=== PATIENT | female | born 1970 | race Caucasian/White ===

== ENCOUNTER 2019-06-30 18:21 | Observation (INO) ==
[2019-06-30] MEDS ORDERED: Isovue-370 500 ML BOTTLE IVP ONE (18:35)
[2019-06-30 19:53] LABS: BUN/Creatinine Ratio 20 (6-26); Blood Urea Nitrogen 8 mg/dL (6-20); Calcium 9.2 mg/dL (8.6-10.3); Carbon Dioxide 27 mEq/L (23-29); Chloride 107 mEq/L (98-107); Glucose 114 mg/dL (70-105); Osmolality,Calculated 287 (280-300); Potassium 4.1 mEq/L (3.5-5.1); Sodium 139 mEq/L (136-145); Troponin I < 0.03 ng/mL (< 0.04); eGFR For African Americans > 60 (> 60); eGFR For Non-African Americans > 60 (> 60)
[2019-06-30 19:53] LABS: Basophils % 0.4 %; Immature Granulocytes % 0.2 % (0-4); Monocytes % 13.8 %; Red Cell Distribution Width 14.9 % (11.5-14.5)
[2019-06-30 20:04] LABS: Thyroid Stimulating Hormone < 0.010 mcIU/mL (0.340-5.600)
[2019-06-30 20:10] LABS: Eosinophils # 0.2 K/mcL (0.0-0.6); Eosinophils % 3.4 %; Hematocrit 32.3 % (35.3-44.9); Hemoglobin 10.3 g/dL (11.5-15.4); Lymphocytes # 1.5 K/mcL (0.6-4.6); Lymphocytes % 28.5 %; Mean Corpuscular HGB Conc 31.9 g/dL (31.6-35.5); Mean Corpuscular Hemoglobin 28.5 pg (28.0-33.3); Mean Corpuscular Volume 89.5 fL (83.0-100.0); Mean Platelet Volume 10.4 fL (9.4-12.4); Monocytes # 0.7 K/mcL (0.0-1.3); Neutrophils # 2.9 K/mcL (1.6-8.9); Platelet Count 160 K/mcL (140-400); Red Blood Count 3.61 M/mcL (3.82-4.97); Segmented Neutrophils % 53.7 %; White Blood Count 5.4 K/mcL (4.3-11.1)
[2019-06-30] MEDS ORDERED: Naloxone 0.4 MG/ML INJ IVP PRN (21:11)
[2019-06-30] MEDS ORDERED: Ondansetron 4 MG/2 ML VIAL IVP PRN (21:11)
[2019-06-30] MEDS ORDERED: *HR* LORazepam 1 MG TABLET PO PRN (21:12)
[2019-06-30] MEDS ORDERED: Furosemide 20 MG/2 ML VIAL IVP ONE (21:28)
[2019-06-30] MEDS: Levalbuterol Neb 0.63 MG/3 ML IH SCH (22:04)
[2019-06-30 22:10] LABS: Magnesium 1.9 mg/dL (1.6-2.6)
[2019-06-30 22:13] LABS: % Iron Saturation 8 % (15-50); Iron 30 mcg/dL (50-170); Transferrin 273 mg/dL (203-362)
[2019-06-30 22:25] LABS: Triiodothyronine (T3) Free 21.49 pg/mL (2.50-3.90)
[2019-06-30 22:28] LABS: Thyroid Stimulating Hormone < 0.010 mcIU/mL (0.340-5.600)
[2019-06-30] MEDS: methIMAzole 5 MG TABLET PO SCH (23:24)
[2019-06-30] MEDS: MethylPREDNISolone 40 MG/ML VIAL IVP SCH (23:24)
[2019-07-01 01:47] LABS: Hematocrit 32.3 % (35.3-44.9); Hemoglobin 10.3 g/dL (11.5-15.4); Mean Corpuscular HGB Conc 31.9 g/dL (31.6-35.5); Mean Platelet Volume 10.8 fL (9.4-12.4); Platelet Count 157 K/mcL (140-400); Red Blood Count 3.55 M/mcL (3.82-4.97); Red Cell Distribution Width 15.1 % (11.5-14.5); White Blood Count 5.4 K/mcL (4.3-11.1)
[2019-07-01 02:06] LABS: Alanine Aminotransferase 13 Units/L (7-52); Albumin 3.6 g/dL (3.5-5.7); Albumin/Globulin Ratio 1.2 (1.1-2.2); Alkaline Phosphatase 223 Units/L (34-104); Aspartate Amino Transferase 21 Units/L (13-39); BUN/Creatinine Ratio 18 (6-26); Bilirubin,Total 0.7 mg/dL (0.3-1.0); Blood Urea Nitrogen 9 mg/dL (6-20); Calcium 9.4 mg/dL (8.6-10.3); Carbon Dioxide 26 mEq/L (23-29); Chloride 104 mEq/L (98-107); Glucose 165 mg/dL (70-105); Magnesium 1.7 mg/dL (1.6-2.6); Osmolality,Calculated 286 (280-300); Potassium 3.9 mEq/L (3.5-5.1); Sodium 137 mEq/L (136-145); Total Protein 6.6 g/dL (6.4-8.9); eGFR For African Americans > 60 (> 60); eGFR For Non-African Americans > 60 (> 60)
[2019-07-01] MEDS: Levalbuterol Neb 0.63 MG/3 ML IH SCH ×3 (04:00→15:35)
[2019-07-01] MEDS: methIMAzole 5 MG TABLET PO SCH ×3 (04:22→17:40)
[2019-07-01] MEDS: MethylPREDNISolone 40 MG/ML VIAL IVP SCH (09:52)
[2019-07-01] MEDS ORDERED: Furosemide 20 MG/2 ML VIAL IVP SCH (10:15)
[2019-07-01 15:08] VITALS: BP 114/72
== END 2019-07-01 19:10 | disposition left against medical advice (07) ==
LOC: 2ANU 18:21 → EMEROOARM 18:21 → 3BNU 22:05
PROVIDERS: ADMIT Internal Medicine; ATTEND Internal Medicine

== ENCOUNTER 2019-09-11 18:52 | Inpatient (IN) ==
[2019-09-11] MEDS: Ipratropium/Albuterol Neb 3 ML IH SCH (19:27)
[2019-09-11 19:43] LABS: Basophils % 0.2 %; Eosinophils # 0.1 K/mcL (0.0-0.6); Eosinophils % 3.4 %; Hematocrit 31.4 % (35.3-44.9); Hemoglobin 9.5 g/dL (11.5-15.4); Immature Granulocytes % 0.2 % (0-4); Lymphocytes # 1.1 K/mcL (0.6-4.6); Lymphocytes % 26.1 %; Mean Corpuscular HGB Conc 30.3 g/dL (31.6-35.5); Mean Corpuscular Hemoglobin 26.5 pg (28.0-33.3); Mean Corpuscular Volume 87.7 fL (83.0-100.0); Mean Platelet Volume 10.2 fL (9.4-12.4); Monocytes # 0.6 K/mcL (0.0-1.3); Neutrophils # 2.3 K/mcL (1.6-8.9); Platelet Count 143 K/mcL (140-400); Red Blood Count 3.58 M/mcL (3.82-4.97); Red Cell Distribution Width 15.6 % (11.5-14.5); Segmented Neutrophils % 55.1 %; White Blood Count 4.1 K/mcL (4.3-11.1)
[2019-09-11 20:05] LABS: Alanine Aminotransferase 10 Units/L (7-52); Albumin 3.2 g/dL (3.5-5.7); Albumin/Globulin Ratio 1.2 (1.1-2.2); Alkaline Phosphatase 217 Units/L (34-104); Aspartate Amino Transferase 20 Units/L (13-39); BUN/Creatinine Ratio 24 (6-26); Bilirubin,Total 0.7 mg/dL (0.3-1.0); Blood Urea Nitrogen 11 mg/dL (6-20); Calcium 8.6 mg/dL (8.6-10.3); Carbon Dioxide 27 mEq/L (23-29); Chloride 104 mEq/L (98-107); Globulin 2.6 g/dL (2.4-3.5); Glucose 110 mg/dL (70-105); Osmolality,Calculated 286 (280-300); Sodium 138 mEq/L (136-145); Total Protein 5.8 g/dL (6.4-8.9); eGFR For African Americans > 60 (> 60); eGFR For Non-African Americans > 60 (> 60)
[2019-09-11 20:12] LABS: Platelet Estimate Normal (Normal)
[2019-09-11] MEDS ORDERED: Isovue-370 500 ML BOTTLE IVP ONE (20:23)
[2019-09-11 20:28] LABS: Thyroid Stimulating Hormone < 0.010 mcIU/mL (0.340-5.600); Triiodothyronine (T3) Total 5.96 ng/mL (0.87-1.78)
[2019-09-11 20:53] LABS: Troponin I < 0.03 ng/mL (< 0.04)
[2019-09-11 21:54] LABS: Bilirubin,Urine Negative (Negative); Blood,Urine Negative (Negative); Clarity,Urine Clear (Clear); Color,Urine Yellow (Yellow); Glucose,Urine (UA) Normal (Normal); Ketones,Urine Negative (Negative); Leukocyte Esterase,Urine Negative (Negative); Nitrite,Urine Negative (Negative); PH,Urine 5.5 pH Units (5.0-8.0); Protein,Urine Negative (Neg-Trace); Specific Gravity,Urine > 1.030 (1.010-1.025); Urobilinogen,Urine Normal (Normal)
[2019-09-11] MEDS ORDERED: methIMAzole 5 MG TABLET PO STA (22:17)
[2019-09-11] MEDS ORDERED: Hydrocortisone Sodium Succ 100 MG/2 ML VIAL IVP STA (22:18)
[2019-09-12] MEDS ORDERED: POTASSIUM IODIDE 1000 MG/ML PO ONE
[2019-09-12] MEDS ORDERED: Naloxone 0.4 MG/ML INJ IVP PRN ×2 (01:45→15:41)
[2019-09-12] MEDS ORDERED: Permethrin CRM 60 GM TUBE TP ONE ×2 (02:06→09:00)
[2019-09-12] MEDS: POTASSIUM IODIDE 1000 MG/ML PO SCH ×2 (03:19→16:52)
[2019-09-12] MEDS ORDERED: Hydrocortisone Sodium Succ 100 MG/2 ML VIAL IVP SCH (04:00)
[2019-09-12] MEDS ORDERED: methIMAzole 5 MG TABLET PO SCH (04:00)
[2019-09-12 05:17] LABS: Basophils % 0.2 %; Hematocrit 30.3 % (35.3-44.9); Hemoglobin 9.1 g/dL (11.5-15.4); Immature Granulocytes % 0.6 % (0-4); Lymphocytes # 0.4 K/mcL (0.6-4.6); Lymphocytes % 8.1 %; Mean Corpuscular Volume 86.6 fL (83.0-100.0); Mean Platelet Volume 10.8 fL (9.4-12.4); Monocytes # 0.1 K/mcL (0.0-1.3); Monocytes % 1.1 %; Neutrophils # 4.8 K/mcL (1.6-8.9); Platelet Count 137 K/mcL (140-400); Red Cell Distribution Width 15.7 % (11.5-14.5); White Blood Count 5.3 K/mcL (4.3-11.1)
[2019-09-12 05:40] LABS: Alanine Aminotransferase 10 Units/L (7-52); Albumin 3.2 g/dL (3.5-5.7); Albumin/Globulin Ratio 1.2 (1.1-2.2); Alkaline Phosphatase 218 Units/L (34-104); Aspartate Amino Transferase 19 Units/L (13-39); BUN/Creatinine Ratio 36 (6-26); Bilirubin,Total 0.7 mg/dL (0.3-1.0); Blood Urea Nitrogen 13 mg/dL (6-20); Calcium 8.6 mg/dL (8.6-10.3); Carbon Dioxide 23 mEq/L (23-29); Chloride 103 mEq/L (98-107); Globulin 2.6 g/dL (2.4-3.5); Glucose 209 mg/dL (70-105); Magnesium 2.1 mg/dL (1.6-2.6); Osmolality,Calculated 284 (280-300); Phosphorous 3.1 mg/dL (2.7-4.5); Potassium 4.1 mEq/L (3.5-5.1); Sodium 134 mEq/L (136-145); Total Protein 5.8 g/dL (6.4-8.9); eGFR For African Americans > 60 (> 60); eGFR For Non-African Americans > 60 (> 60)
[2019-09-12] MEDS ORDERED: *HR* Enoxaparin 40 MG/0.4 ML SYRINGE SQ SCH (06:00)
[2019-09-12 10:20] LABS: Thyroid Stimulating Hormone < 0.010 mcIU/mL (0.340-5.600)
[2019-09-12] MEDS ORDERED: Cosyntropin 250 MCG/2 ML VIAL IVP ONE (15:41)
[2019-09-12] MEDS ORDERED: ALPRAZolam 1 MG TABLET PO PRN (15:41)
[2019-09-12] MEDS: methIMAzole 5 MG TABLET PO SCH ×2 (16:06→22:26)
[2019-09-12] MEDS: Aspirin 81 MG TAB.CHEW PO SCH (16:06)
[2019-09-13 02:51] LABS: Basophils % 0.1 %; Eosinophils # 0.1 K/mcL (0.0-0.6); Eosinophils % 1.1 %; Hematocrit 29.1 % (35.3-44.9); Hemoglobin 8.8 g/dL (11.5-15.4); Immature Granulocytes % 0.4 % (0-4); Lymphocytes # 2.1 K/mcL (0.6-4.6); Lymphocytes % 25.5 %; Mean Corpuscular HGB Conc 30.2 g/dL (31.6-35.5); Mean Corpuscular Hemoglobin 25.9 pg (28.0-33.3); Mean Corpuscular Volume 85.6 fL (83.0-100.0); Mean Platelet Volume 10.7 fL (9.4-12.4); Monocytes # 0.9 K/mcL (0.0-1.3); Monocytes % 11.4 %; Platelet Count 136 K/mcL (140-400); Red Cell Distribution Width 15.9 % (11.5-14.5); Segmented Neutrophils % 61.5 %
[2019-09-13 02:54] LABS: White Blood Count 8.1 K/mcL (4.3-11.1)
[2019-09-13 03:10] LABS: Alanine Aminotransferase 10 Units/L (7-52); Albumin 3.4 g/dL (3.5-5.7); Albumin/Globulin Ratio 1.4 (1.1-2.2); Alkaline Phosphatase 208 Units/L (34-104); Aspartate Amino Transferase 20 Units/L (13-39); BUN/Creatinine Ratio 51 (6-26); Bilirubin,Total 0.8 mg/dL (0.3-1.0); Blood Urea Nitrogen 19 mg/dL (6-20); Calcium 9.1 mg/dL (8.6-10.3); Carbon Dioxide 26 mEq/L (23-29); Chloride 105 mEq/L (98-107); Globulin 2.4 g/dL (2.4-3.5); Glucose 121 mg/dL (70-105); Osmolality,Calculated 288 (280-300); Potassium 3.9 mEq/L (3.5-5.1); Sodium 137 mEq/L (136-145); Total Protein 5.8 g/dL (6.4-8.9); eGFR For African Americans > 60 (> 60); eGFR For Non-African Americans > 60 (> 60)
[2019-09-13] MEDS: *HR* Enoxaparin 40 MG/0.4 ML SYRINGE SQ SCH (06:04)
[2019-09-13] MEDS: methIMAzole 5 MG TABLET PO SCH ×3 (09:04→21:26)
[2019-09-13] MEDS: Aspirin 81 MG TAB.CHEW PO SCH (09:04)
[2019-09-13] MEDS: Metoprolol XL (24 HR) Succ 50 MG TAB.ER.24H PO SCH (09:05)
[2019-09-13] MEDS ORDERED: Levalbuterol Neb 1.25 MG/3 ML IH PRN (14:35)
[2019-09-13] MEDS: Furosemide 40 MG/4 ML VIAL IVP SCH ×2 (17:27→21:26)
[2019-09-14 05:22] LABS: Basophils % 0.3 %; Eosinophils # 0.2 K/mcL (0.0-0.6); Eosinophils % 2.4 %; Hematocrit 29.4 % (35.3-44.9); Hemoglobin 9.2 g/dL (11.5-15.4); Immature Granulocytes % 0.3 % (0-4); Lymphocytes # 1.7 K/mcL (0.6-4.6); Lymphocytes % 27.7 %; Mean Corpuscular HGB Conc 31.3 g/dL (31.6-35.5); Mean Corpuscular Hemoglobin 26.7 pg (28.0-33.3); Mean Corpuscular Volume 85.2 fL (83.0-100.0); Mean Platelet Volume 10.4 fL (9.4-12.4); Monocytes # 0.9 K/mcL (0.0-1.3); Monocytes % 13.8 %; Neutrophils # 3.5 K/mcL (1.6-8.9); Platelet Count 143 K/mcL (140-400); Red Blood Count 3.45 M/mcL (3.82-4.97); Red Cell Distribution Width 15.7 % (11.5-14.5); Segmented Neutrophils % 55.5 %; White Blood Count 6.2 K/mcL (4.3-11.1)
[2019-09-14] MEDS: *HR* Enoxaparin 40 MG/0.4 ML SYRINGE SQ SCH (05:44)
[2019-09-14 05:57] LABS: Thyroid Stimulating Hormone < 0.010 mcIU/mL (0.340-5.600)
[2019-09-14] MEDS ORDERED: Tiotropium 18 MCG inhalation IH SCH (07:00)
[2019-09-14] MEDS: Furosemide 40 MG/4 ML VIAL IVP SCH (09:27)
[2019-09-14] MEDS: Metoprolol XL (24 HR) Succ 50 MG TAB.ER.24H PO SCH (09:27)
[2019-09-14] MEDS: methIMAzole 5 MG TABLET PO SCH ×2 (09:27→15:04)
[2019-09-14] MEDS: Aspirin 81 MG TAB.CHEW PO SCH (09:27)
[2019-09-14 15:03] VITALS: BP 127/74
[2019-09-15 10:10] LABS: Thyroglobulin Antibody 297.1 IU/mL (0.0-4.0)
== END 2019-09-14 15:20 | disposition home or self-care (01) | DRG 644 ==
LOC: ICNU 18:52 → EMEROOARM 18:52 → ICNU 09-12 01:01 → 2ANU 09-12 17:13 → SUATTDRO 09-13 12:58
PROVIDERS: ADMIT Internal Medicine; ATTEND Internal Medicine